=== PATIENT | male | born 1955 | race Caucasian/White ===

== ENCOUNTER → 2016-09-29 | Outpatient (CLI) | payer MEDICARE, MEDICAID | LOC: OD 14:48 | PROVIDERS: ATTEND Internal Medicine | DX: M17.11 Unilateral primary osteoarthritis, right knee (principal); M54.40 Lumbago with sciatica, unspecified side | CPT/HCPCS: 72110 ==

== ENCOUNTER → 2018-07-09 | Outpatient (CLI) | payer MEDICARE, MEDICAID ==
--- NOTE | 2018-07-09 14:04 | RADIOLOGY REPORT (SQ) ---
EXAM DESCRIPTION: CT CHEST WITHOUT COMPLETED DATE/TIME: 07/09/2018 1:31 pm REASON FOR STUDY: COPD BRONCHITIS J40 BRONCHITIS, NOT SPECIFIED ACUTE OR CHRONIC J44.9 CHRONIC OBSTRUCTIVE PULMONARY DISEASE, UNSPECIFIED COMPARISON: 2012 TECHNIQUE: CT scan performed of the chest without intravenous contrast. Images reviewed with lung, soft tissue and bone windows. Reconstructed coronal and sagittal MPR images reviewed. All images st ored on PACS. All CT scanners at this facility use dose modulation, iterative reconstruction, and/or weight based d osing when appropriate to reduce radiation dose to as low as reasonably achievable (ALARA). [facility]: Dose Right [facility]: CareDose [facility]: Dose Right [facility]: Teradose 4D [facility]: Cylance RADIATION DOSE: CT Rad equipment meets quality standard of care and radiation dose reduction techniq ues were employed. CTDIvol: 19.5 mGy. DLP: 789 mGy-cm. mGy. LIMITATIONS: No technical limitations. FINDINGS: LUNGS AND PLEURA: Hyperinflation. Stable chronic pleural thickening left lower lobe. Sta ble subpleural bandlike density consistent with scarring in the superior left lower lobe. No develop ing nodules or infiltrate. No effusions. HILAR AND MEDIASTINAL STRUCTURES: No identified masses or abnormal nodes. No obvious aneurysm. HEART AND VASCULAR STRUCTURES: Dilatation of the proximal LAD approximately 13 mm on image 26 series 2. Moderate coronary arterial calcifications. No pericardial effusion. UPPER ABDOMEN: Cholelithiasis. Limited exam. THYROID AND OTHER SOFT TISSUES: No masses. No adenopathy. BONES: Nothing acute. HARDWARE: None in the chest. OTHER: No other significant findings. IMPRESSION: 1. COPD. Stable areas of scarring in the lingula and left lower lobe. 2. Incidental aneurysm proximal LAD. TECHNICAL DOCUMENTATION: JOB ID: [id number] Quality ID # [id number]: Final reports with documentation of one or more dose reduction techniques (e.g., Au tomated exposure control, adjustment of the mA and/or kV according to patient size, use of iterative reconstruction technique) 2010 [employer]- All Rights Reserved Reading location - IP/workstation name: [facility]
== END ==
LOC: RAD 13:04
PROVIDERS: ATTEND Internal Medicine Critical Care Medicine
DX: J44.9 Chronic obstructive pulmonary disease, unspecified (principal)
CPT/HCPCS: 71250